=== PATIENT | female | born 1945 | race Asian ===

== ENCOUNTER 2025-08-11 10:52 | Outpatient (REF) | payer OTHER, SELFPAY ==
--- NOTE | ~2025-08-11 | XR_ITS ---
EXAMINATION: XR KNEE 3 VIEWS BILATERAL HISTORY: pain COMPARISON: There are no prior studies available for comparison. FINDINGS: Standing AP views of both knees and additional lateral and sunrise patellar views of the bilateral knees are submitted. Osseous mineralization is normal. There is no fracture or dislocation. There is mild narrowing of the lateral compartment of the right knee. There is a small left knee joint effusion. There are vascular calcifications. XR/XR Knee Junito 3V IMPRESSION: Mild narrowing of the lateral compartment of the right knee. Small left knee joint effusion. Electronically signed by: Valentín Pierre MD 08/11/2025 02:42 PM EDT
== END 2025-08-11 10:53 | disposition home or self-care (01) ==
LOC: HO.HOSX 10:52
PROVIDERS: Visit Provider Physician Assistant
DX: M17.0 Bilateral primary osteoarthritis of knee (principal)
CPT/HCPCS: 20610; 73562; 99202; J0665; J1100; J2003

== ENCOUNTER 2025-08-11 14:15 | Outpatient (AMB) | payer OTHER, SELFPAY ==
--- NOTE | 2025-08-11 14:40 | MHC.OFFVIS ---
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 Patient recently seen by PCP, complaints of knee pain present for a few months, note mentions patient uses cane/walker with ambulation. Today patient reports pain in her left knee is the worse, states pain around her knee on lateral and medial aspect of knee. Denies injury. No previous treatment. States that she is unable to take Tylenol as it upsets her stomach. Irish speaking, patient declined group leader wafer polishing, she requested caregiver to translate for her visit today. 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 Ambulates with a cane and walker. Left knee is worse than the right knee. She has difficulty with going up and down stairs. She has no treatment to date on the knee. [facility] Medical History (Updated 08/11/25 @ 21:55 by Bry Richard PA-C) Hypercholesteremia Diabetes Social History (Updated 08/11/25 @ 14:42 by Trudy Ferrell Antwon) Patient Tobacco Use Status: Never used Tobacco Current occupational status: unemployed Review of Systems Const All systems reviewed & are unremarkable except as noted in HPI and below Physical Exam Vital Signs: BMI result Body Mass Index 26.7 Const General: cooperative and no acute distress Orientation/consciousness: patient oriented x3 Resp Effort & Inspection: normal respiratory effort and able to speak in complete sentences Cardio Peripheral pulses: Peripheral pulses 2+ throughout Neuro General: patient oriented x3 Extrem Other: Bilat knee normal to inspection. No erythema or joint effusion. She has medial joint line tenderness bilaterally. Full ROM. Callf supple non tender, NVI. Office Procedures AMB Joint Injection/Aspiration Joint Injection/Aspiration Primary Site: left knee Prep: site was prepped using aseptic technique, ethochloride spray was applied and injection warnings given Injected: 40 mg of, with 3 mL of, 1% plain lidocaine, 0.25% bupivacaine, in the joint and decadron Approach Used: anterolateral Procedure: The patient tolerated the procedure well and there was some relief with the local anesthesia Coding 44735 - Glenohumeral/Tronchanteric Bursa/Intraarticular Procedure code (CPT) selection complete Results Reviewed Results Reviewed: Xrays were obtained in the office today and personally reviewed by me of sheila knee show mild medial compartment oa Assessment & Plan Assessment & Plan (1) Osteoarthritis of knees, bilateral: Code(s): M17.0 - Bilateral primary osteoarthritis of knee Category: Medical Plan: I explained to the patient and her mall plant caretaker the extent of her Oa and options which includes PT, steroid injections, NSAIDs and modification of activity. She would like to proceed with an injection today. Since she is diabetic, we chose to injection one knee today. The left knee was injection today which the patient tolerated well. I explained to the patient and her mall plant caretaker she needs to monitor her BG levels over the next 72 hours. If she feels unwell, she will need to be seen in the ED. She is content with this plan and will see me back in a few weeks for her right knee injection. Orders: Orders XR Knee Junito 3V Today M25.561 - Pain in right knee, M25.562 - Pain in left knee Coding Level of Care Code New Pt Level 3 (74303) Complex EM visit Add On G2211 Diagnoses Osteoarthritis of knees, bilateral M17.0 CPT Codes Coding - Joint 7: 76445 - Glenohumeral/Tronchanteric Bursa/Intraarticular ([id number])
[2025-08-11 14:47] VITALS: BMI 26.7
== END 2025-08-11 15:17 | disposition home or self-care (01) ==
PROVIDERS: PCP Hospitalist; Visit Provider Physician Assistant
DX: M17.0 Bilateral primary osteoarthritis of knee (principal)
CPT/HCPCS: 20610; 99203

== ENCOUNTER → 2025-08-11 14:16 | Outpatient (BNV) | payer OTHER, SELFPAY | PROVIDERS: Visit Provider Radiology Diagnostic Radiology | DX: M25.861 Other specified joint disorders, right knee (principal); M25.462 Effusion, left knee | CPT/HCPCS: 73562 ==

== ENCOUNTER 2025-08-23 08:45 | Outpatient (AMB) | payer OTHER, SELFPAY ==
--- NOTE | 2025-08-23 08:53 | MHC.OFFVIS ---
Vital Signs 08/23/25 08:55 Height 4 ft 11 in Weight 132 lb BMI 26.7 Intake Visit Reasons: Inj-Right knee injection Intake Note: Iron is an 79 year old female who presents today for a right knee injection. At her last visit on 08/11/25 she was given a left knee injection. Today patient is requested a right knee injection. Allergies No Known Allergies Allergy (Verified 08/23/25 08:55) HPI HPI Inj-Right knee injection: Details: 79-year-old female returns to the office today for right knee pain. I last saw her for her left knee and she had a steroid injection which was quite successful. She continues to experience ongoing right knee pain which limits her ability to perform daily activities. [facility] Medical History (Updated 08/11/25 @ 21:55 by Bry Richard PA-C) Hypercholesteremia Diabetes Social History Patient Tobacco Use Status: Never used Tobacco Current occupational status: unemployed Review of Systems Const All systems reviewed & are unremarkable except as noted in HPI and below Physical Exam Vital Signs: BMI result Body Mass Index 26.7 Extrem Other: Right knee is normal to inspection no erythema or joint effusion. Full range of motion with crepitus. Medial joint line tenderness. Calf supple nontender neurovascularly intact. Office Procedures AMB Joint Injection/Aspiration Joint Injection/Aspiration Primary Site: right knee Prep: site was prepped using aseptic technique, ethochloride spray was applied and injection warnings given Injected: 40 mg of, with 3 mL of, 1% plain lidocaine, 0.25% bupivacaine, in the joint and decadron Approach Used: anterolateral Coding 37405 - Glenohumeral/Tronchanteric Bursa/Intraarticular Procedure code (CPT) selection complete Assessment & Plan Assessment & Plan (1) Osteoarthritis of knees, bilateral: Code(s): M17.0 - Bilateral primary osteoarthritis of knee Category: Medical Plan: We discussed options today, which include steroid injection. The patient did consent to move forward with the injection, which was tolerated well.? I recommended rest, ice and elevation and OTC antiinflammatories prn for discomfort. If symptoms persist over the next 6-8 weeks, they will contact our office, otherwise, prn We also discussed their diabetes and the effect the steroid can have on thier blood glucose levels; therefore, they will continue to monitor these very closely over the next 72 hours Coding Level of Care Code Est Pt Level 3 (95397) Complex EM visit Add On G2211 Diagnoses Osteoarthritis of knees, bilateral M17.0 CPT Codes Coding - Joint 7: 66867 - Glenohumeral/Tronchanteric Bursa/Intraarticular ([id number])
[2025-08-23 08:55] VITALS: BMI 26.7
== END 2025-08-23 09:24 | disposition home or self-care (01) ==
LOC: HO.HOS 08:45
PROVIDERS: Visit Provider Physician Assistant
DX: M17.0 Bilateral primary osteoarthritis of knee (principal)
CPT/HCPCS: 20610

== ENCOUNTER → 2025-08-23 08:45 | Outpatient (BNVA) | payer OTHER, SELFPAY | PROVIDERS: Visit Provider Physician Assistant | DX: M17.0 Bilateral primary osteoarthritis of knee (principal) | CPT/HCPCS: 20610; J0665; J1100; J2003 ==